=== PATIENT | male | born 1970 | race Caucasian/White ===

== ENCOUNTER 2018-12-12 12:56 | Emergency (ER) | payer MEDICARE ==
[~2018-12-12] VITALS: Ht 180.3 cm; Wt 147.0 kg
[2018-12-12 13:30] VITALS: BP 131/85
[2018-12-12] MEDS ORDERED: LITH300C PO (13:54)
[2018-12-12] MEDS ORDERED: OXCA150T5 PO (13:54)
[2018-12-12] MEDS ORDERED: EFF37.5XRC PO (13:54)
== END 2018-12-12 14:09 | disposition home or self-care (01) ==
LOC: ER 12:56
DX: F31.9 Bipolar disorder, unspecified (principal); Z76.0 Encounter for issue of repeat prescription; F17.210 Nicotine dependence, cigarettes, uncomplicated
CPT/HCPCS: 99283

== ENCOUNTER 2019-01-19 13:14 | Emergency (ER) | payer MEDICARE ==
[~2019-01-19] VITALS: Ht 180.3 cm; Wt 147.7 kg
[~2019-01-19 13:14] MED LIST: LITH300C PO; OXCA150T5 PO
[2019-01-19 13:18] VITALS: BP 144/96
[2019-01-19] MEDS ORDERED: VENL75CA55 PO (14:37)
[2019-01-19] MEDS ORDERED: LITH300C PO (14:37)
[2019-01-19] MEDS ORDERED: OXCA150T14 PO (14:37)
== END 2019-01-19 14:49 | disposition home or self-care (01) ==
LOC: ER 13:14
DX: F95.2 Tourette's disorder (principal); F31.9 Bipolar disorder, unspecified; Z76.0 Encounter for issue of repeat prescription; Z79.899 Other long term (current) drug therapy
CPT/HCPCS: 99283

== ENCOUNTER 2020-03-23 08:44 | Emergency (ER) | payer MEDICARE ==
[~2020-03-23] VITALS: Ht 180.3 cm; Wt 136.4 kg
[~2020-03-23 08:44] MED LIST changes: +OXCA150T14 PO; +VENL75CA55 PO
[2020-03-23 08:46] VITALS: BP 115/73
[2020-03-23] MEDS ORDERED: TETanus/Pertussis (Acell)/Diphther VAC/PF (Tdap-Adult) 0.5ml syringe IMVAC ONE (09:20)
[2020-03-23] MEDS ORDERED: LIDOcaine 1% W/epiNEPHrine 1:200,000 10ml vial IJ ONE (09:20)
== END 2020-03-23 10:21 | disposition home or self-care (01) ==
LOC: ER 08:44
DX: S61.201A Unspecified open wound of left index finger without damage to nail, initial encounter (principal); F31.9 Bipolar disorder, unspecified; F17.200 Nicotine dependence, unspecified, uncomplicated; F12.90 Cannabis use, unspecified, uncomplicated; Z60.2 Problems related to living alone; Z79.899 Other long term (current) drug therapy; W26.0XXA Contact with knife, initial encounter; Y93.89 Activity, other specified; Y92.89 Other specified places as the place of occurrence of the external cause; Y99.8 Other external cause status
CPT/HCPCS: 64450; 90471; 90715; 99283; 99284